=== PATIENT | male | born 2000 | race Caucasian/White ===

== ENCOUNTER 2023-03-08 21:27 | Emergency (ER) | payer OTHER ==
[~2023-03-08] VITALS: Ht 190.5 cm; Wt 70.5 kg
[2023-03-08 22:10] LABS: BASO # 0.1 K/mm3 (0.0-0.2); BASO % 0.6 % (0.0-2.0); EOS # 0.2 K/mm3 (0.0-0.7); EOS % 1.6 % (0.0-4.0); GRAN # 8.2 K/mm3 (1.4-6.5); GRAN % 74.4 % (42.2-75.2); HEMATOCRIT 44.9 % (42.0-52.0); LYMPH # 1.6 K/mm3 (1.2-3.4); MEAN CELL VOLUME 87 fl (80.0-100.0); MEAN CORPUSCULAR HEMOGLOBIN 31 pg (27-31); MEAN CORPUSCULAR HGB CONC 36 g/dl (33.0-37.0); MEAN PLATELET VOLUME 10.1 fl (7.4-10.4); PLATELET COUNT 261 K/mm3 (130-400); RED BLOOD COUNT 5.19 M/mm3 (4.20-5.60); REDCELL DISTRIBUTION WIDTH-CV 12.5 % (11.5-14.5)
[2023-03-08 22:29] LABS: ALANINE AMINOTRANSFERASE 10 U/L (0-55); ALBUMIN 3.5 gm/dL (3.5-5.0); ALCOHOL(ethanol),MEDICAL < 10 mg/dL (0-10); ALKALINE PHOSPHATASE 60 U/L (40-150); ANION GAP 10 mmol/L (7-16); AST,SGOT 17 U/L (5-34); BILIRUBIN,TOTAL 0.6 mg/dL (0.2-1.2); BLOOD UREA NITROGEN 10 mg/dL (9-21); CALCIUM 8.1 mg/dL (8.4-10.2); CARBON DIOXIDE 25 mmol/L (22-29); CHLORIDE 106 mmol/L (98-107); CREATININE, serum 0.87 mg/dL (0.72-1.25); GLUCOSE 83 mg/dL (70-99); POTASSIUM 3.9 mmol/L (3.5-4.5); SODIUM 141 mmol/L (136-145); TOTAL PROTEIN 5.9 gm/dL (6.2-8.1)
[2023-03-08 23:02] LABS: COLLECTION METHOD CLEAN CATCH
[2023-03-08 23:08] LABS: URINE APPEARANCE Cloudy (CLEAR/HAZY); URINE BLOOD TRACE-INTACT (NEGATIVE); URINE COLOR Yellow (YELLOW); URINE GLUCOSE Negative (NEGATIVE); URINE KETONE Negative (NEGATIVE); URINE NITRATE Negative (NEGATIVE); URINE PROTEIN(semi-quant) Negative (NEGATIVE); URINE UROBILINOGEN 0.2 E.U/dL (0.2-1.0)
[2023-03-08 23:17] LABS: MUCOUS Present (NOT PRESENT); SQUAMOUS EPITHELIAL 0-2 /hpf (0-10); URINE BACTERIA None Seen /hpf (NONE SEEN)
[2023-03-08 23:19] LABS: TRICYCLIC ANTIDEPRESS URINE NEGATIVE
[2023-03-08] MEDS ORDERED: BACTRIM DS 8001 TAB PO (23:57)
[2023-03-09 00:08] VITALS: BP 124/66; PULSE 93; TEMP 98.3
== END 2023-03-09 00:08 | disposition home or self-care (01) ==
LOC: COL.ER 21:27
PROVIDERS: Nurse Practitioner Primary Care
DX: S01.511A Laceration without foreign body of lip, initial encounter (principal); S40.212A Abrasion of left shoulder, initial encounter; R55 Syncope and collapse; N39.0 Urinary tract infection, site not specified; F17.290 Nicotine dependence, other tobacco product, uncomplicated; Z28.310 Unvaccinated for COVID-19; Z23 Encounter for immunization; W18.09XA Striking against other object with subsequent fall, initial encounter; W26.8XXA Contact with other sharp object(s), not elsewhere classified, initial encounter
CPT/HCPCS: J0696; J7030